=== PATIENT | female | born 1960 | race Caucasian/White ===

== ENCOUNTER 2019-06-10 10:31 | Outpatient (CLI) | payer OTHER ==
--- NOTE | 2019-06-10 12:15 | CT ---
CT ABDOMEN AND PELVIS WITH IV CONTRAST 06/10/2019 CLINICAL INFORMATION: Right-sided abdominal pain for 5 weeks. COMPARISON: 01/18/2016 Technique: Multiple contiguous axial CT images are obtained through the abdomen and pelvis with IV contrast. Cor onal reformatted images are provided. FINDINGS: Lower Chest: Minimal dependent atelectasis. Vessels: Minimal vascular calcifications in the abdominal aorta. The abdominal aorta is normal in jona iber without evidence of an aortic dissection. Abdomen: Portal vein:Patent Gallbladder: Within normal limits for CT imaging. Liver: within normal limits. Spleen: within normal limits. Pancreas: within normal limits. Adrenals: within normal limits. Kidneys: A subcentimeter too small to characterize hypodense lesion is again seen in the midportion l eft kidney. Kidneys otherwise have a normal CT appearance. Bowel: Small to moderate amount retained fecal material is seen throughout the colon. Loops of small bowel are normal in caliber. Appendix: Not definitely visualized, but there are no secondary signs to suggest appendicitis Peritoneum: No ascites or free air; no fluid collection. Mesentery and Retroperitoneum: No enlarged mesenteric or retroperitoneal lymph nodes. Abdominal Wall: within normal limits. Pelvis: Reproductive Organs: Evidence of hysterectomy. Pelvis within normal limits. Bladder: within normal limits. Bones: Postsurgical changes related to fusion of the L4-5 and L5-S1 levels are noted. Single screws a re seen in the anterior aspects of these vertebral bodies. No suspicious lytic or sclerotic osseous lesions are identified. No significant interval change compared to study in 2016. IMPRESSION: 1. No acute findings are seen in the abdomen or pelvis. 2. Constipation. 3. Hysterectomy.
== END 2019-06-10 10:32 | disposition home or self-care (01) ==
LOC: CT 10:31
PROVIDERS: ATTEND Family Medicine
DX: R10.9 Unspecified abdominal pain (principal); K59.00 Constipation, unspecified; Z90.710 Acquired absence of both cervix and uterus
CPT/HCPCS: 74177; 82565

== ENCOUNTER 2019-06-17 10:04 | Outpatient (CLI) | payer OTHER ==
--- NOTE | 2019-06-17 11:50 | RAD ---
2 VIEWS RIGHT HIP: Date: 06/17/2019 HISTORY: Right hip pain. FINDINGS: 2 views of the right hip show no evidence of acute fracture or dislocation. No degenerative changes a re seen. Hardware is seen in the lumbar spine. IMPRESSION: No evidence of acute osseous abnormality. POS: CET
== END 2019-06-17 10:05 | disposition home or self-care (01) ==
LOC: SCSRAD 10:04
PROVIDERS: ATTEND Family Medicine
DX: M16.11 Unilateral primary osteoarthritis, right hip (principal)

== ENCOUNTER 2020-10-07 14:57 | Outpatient (CLI) | payer OTHER | END 2020-10-07 14:58 | disposition home or self-care (01) | LOC: BICCT 14:57 | PROVIDERS: ATTEND Family Medicine | DX: H53.9 Unspecified visual disturbance (principal); M54.2 Cervicalgia; I67.82 Cerebral ischemia; M47.812 Spondylosis without myelopathy or radiculopathy, cervical region; G93.89 Other specified disorders of brain; V89.9XXA Person injured in unspecified vehicle accident, initial encounter; Z98.1 Arthrodesis status | CPT/HCPCS: 70450; 72040 ==

== ENCOUNTER 2020-10-16 14:13 | Outpatient (CLI) | payer OTHER ==
[2020-10-17 01:51] LABS: SARS-CoV-2 PCR by NAA Not Detected (NotDetected)
== END 2020-10-16 14:14 | disposition home or self-care (01) ==
LOC: LABBT 14:13
PROVIDERS: ATTEND Ophthalmology Retina Specialist
DX: Z01.812 Encounter for preprocedural laboratory examination (principal); H43.391 Other vitreous opacities, right eye; Z20.822 Contact with and (suspected) exposure to COVID-19
CPT/HCPCS: 87635; U0003; U0005

== ENCOUNTER 2020-10-20 06:13 | Day surgery (SDC) | payer OTHER ==
[2020-10-19 13:11] VITALS: BMI 22.1
[2020-10-20] MEDS ORDERED: PROPOFOL 20 ML ONE (06:32)
[2020-10-20] MEDS ORDERED: Midazolam HCl 2 mg/2 ml Vial ONE (06:32)
[2020-10-20] MEDS ORDERED: Fentanyl 100 MCG/2 ML VIAL ONE (06:32)
[2020-10-20] MEDS ORDERED: EPINEPHrine 0.3 MG in Ophthalmic Irrigation Solution 500 ML IRR SCH (06:45)
[2020-10-20] MEDS ORDERED: Cyclopentolate W/ Phenylephrin 40 DROP/2 ML BOT ONE (06:52)
[2020-10-20] MEDS ORDERED: Phenylephrine 2.5% Ophth Soln 5 ML BOT ONE (06:52)
[2020-10-20] MEDS ORDERED: Lidocaine 4% PF 5 ML AMP ONE (07:26)
[2020-10-20] MEDS ORDERED: Triamcinolone 40 MG/ML VIAL ONE (07:26)
[2020-10-20] MEDS ORDERED: CEFAZOLIN 1 GM VIAL ONE (07:26)
[2020-10-20] MEDS ORDERED: Lidocaine 1% PF 5 ML VIAL ONE (07:26)
[2020-10-20] MEDS ORDERED: Bupivacaine PF 0.75% SDV 10 ML ONE (07:26)
[2020-10-20] MEDS ORDERED: Maxitrol 0.1% Opth Oint 3.5 GM TUBE ONE (07:26)
== END 2020-10-20 08:45 | disposition home or self-care (01) ==
LOC: SDC 06:13
PROVIDERS: ATTEND Ophthalmology Retina Specialist
PROC: 08T43ZZ Resection of Right Vitreous, Percutaneous Approach (ICD-10-PCS; principal; 2020-10-20)
DX: H43.391 Other vitreous opacities, right eye (principal); Z79.899 Other long term (current) drug therapy; Z88.5 Allergy status to narcotic agent; Z88.8 Allergy status to other drugs, medicaments and biological substances
CPT/HCPCS: J0171; J0690; J2250; J2704; J3010; J3301; J3490

== ENCOUNTER 2021-02-20 11:33 | Emergency (ER) | payer OTHER ==
[2021-02-21 00:23] LABS: SARS-CoV-2 PCR by NAA Not Detected (NotDetected)
== END 2021-02-20 12:37 | disposition home or self-care (01) ==
LOC: ERS 11:33
DX: R09.81 Nasal congestion (principal); R05 Cough; R51.9 Headache, unspecified; Z20.822 Contact with and (suspected) exposure to COVID-19
CPT/HCPCS: 99283; U0003; U0005

== ENCOUNTER 2021-05-21 15:53 | Outpatient (CLI) | payer OTHER | END 2021-05-21 15:54 | disposition home or self-care (01) | LOC: RAD 15:53 | PROVIDERS: ATTEND Nurse Practitioner Family | DX: M46.1 Sacroiliitis, not elsewhere classified (principal); M47.818 Spondylosis without myelopathy or radiculopathy, sacral and sacrococcygeal region; Z98.890 Other specified postprocedural states | CPT/HCPCS: 72202 ==

== ENCOUNTER 2022-04-06 13:40 | Outpatient (CLI) | payer OTHER | END 2022-04-06 13:41 | disposition home or self-care (01) | LOC: SCSMRI 13:40 | PROVIDERS: ATTEND Orthopaedic Surgery | DX: M25.532 Pain in left wrist (principal); M65.4 Radial styloid tenosynovitis [de Quervain] ==

== ENCOUNTER 2022-04-19 19:39 | Emergency (ER) | payer OTHER ==
[2022-04-19] MEDS ORDERED: Lidocaine 1% MPF 2 ML VIAL ONE (20:10)
[2022-04-19] MEDS ORDERED: HYDROcodone/Acetaminophen 5/325 mg Tablet ONE (20:10)
[2022-04-19] MEDS ORDERED: Lorazepam 1 MG TAB ONE (21:06)
[2022-04-19] MEDS ORDERED: Lidocaine 1% PF 5 ML VIAL ONE (21:35)
[2022-04-19] MEDS ORDERED: Bacitracin 1 PK ONE (22:31)
== END 2022-04-19 22:47 | disposition home or self-care (01) ==
LOC: ERS 19:39
DX: S51.811A Laceration without foreign body of right forearm, initial encounter (principal); E03.9 Hypothyroidism, unspecified; Z79.899 Other long term (current) drug therapy; W26.8XXA Contact with other sharp object(s), not elsewhere classified, initial encounter
CPT/HCPCS: 12002

== ENCOUNTER 2022-05-12 07:32 | Outpatient (CLI) | payer OTHER ==
[2022-05-12 09:48] LABS: #Eosinphils 0.1 10x3/uL (0.0-0.5); #Monocytes 0.6 10x3/uL (0.0-1.1); #Neutrophils 2.6 10x3/uL (1.5-8.4); %Basophils 0.8 % (0.0-2.0); %Eosinophils 2.2 % (0.0-6.0); %Lymphocytes 35.5 % (18.0-47.0); %Neutrophils 50.3 % (40.0-75.0); Hemoglobin 13.9 g/dL (12.0-15.5); Mean Corpuscular Hemoglobin 31.3 pg (27.0-33.0); Mean Corpuscular Volume 92.1 fl (81.6-98.3); Mean Platelet Volume 11.4 fl (7.4-10.4); Platelet Count 236 10x3/uL (150-450); RBC Distribution Width 12.5 % (11.5-14.5); Red Blood Cell (RBC) Count 4.44 10x6/uL (3.90-5.03); White Blood Cell (WBC) Count 5.1 10x3/uL (3.5-10.5)
== END 2022-05-12 07:33 | disposition home or self-care (01) ==
LOC: LABBT 07:32
PROVIDERS: ATTEND Orthopaedic Surgery Hand Surgery
DX: Z01.818 Encounter for other preprocedural examination (principal); M65.4 Radial styloid tenosynovitis [de Quervain]; M67.432 Ganglion, left wrist
CPT/HCPCS: 85025; 93005; 93010

== ENCOUNTER 2022-05-16 11:17 | Day surgery (SDC) | payer OTHER ==
[2022-05-12 15:16] VITALS: BMI 22.6
[2022-05-16] MEDS ORDERED: fentaNYL PF 100 MCG/2 ML SYRINGE ONE (13:11)
[2022-05-16] MEDS ORDERED: Bacitracin Zinc Ointment 30 gm TUBE ONE (13:25)
[2022-05-16] MEDS ORDERED: Neomycin-Polymyxin 1 ML AMP ONE (13:25)
[2022-05-16] MEDS ORDERED: Bupivacaine PF 0.5% 30 ML VIAL ONE (13:25)
[2022-05-16] MEDS ORDERED: ePHEDrine 50 MG/ML VIAL ONE (13:59)
[2022-05-16] MEDS ORDERED: Ondansetron PF 4 MG/2 ML Vial ONE ×2 (13:59→17:38)
[2022-05-16] MEDS ORDERED: PROPOFOL 200 MG/20 ML VIAL ONE (13:59)
[2022-05-16] MEDS ORDERED: Dexamethasone 20 MG/5 ML VIAL ONE (13:59)
[2022-05-16] MEDS ORDERED: CEFAZOLIN 2 GM VIAL ONE (14:11)
[2022-05-16] MEDS ORDERED: Sodium Chloride 0.9% 100 ML ONE (14:11)
[2022-05-16] MEDS ORDERED: Betamet Acet/Betamet Na Ph 30 MG/5 ML VIAL ONE (14:52)
[2022-05-16] MEDS ORDERED: Ketorolac Tromethamine 30 MG/ML VIAL ONE (15:50)
[2022-05-16] MEDS ORDERED: diphenhydrAMINE 50 MG/ML VIAL ONE (16:06)
[2022-05-16] MEDS ORDERED: Ondansetron PF 4 MG/2 ML Vial IVP SCH (17:30)
[2022-05-16] MEDS ORDERED: hydrOXYzine 25 MG TAB PO SCH (17:30)
== END 2022-05-16 18:18 | disposition home or self-care (01) ==
LOC: SDC 11:17
PROVIDERS: ATTEND Orthopaedic Surgery Hand Surgery
PROC: 0LB60ZZ Excision of Left Lower Arm and Wrist Tendon, Open Approach (ICD-10-PCS; principal; 2022-05-16)
PROC: 01N60ZZ Release Radial Nerve, Open Approach (ICD-10-PCS; principal; 2022-05-16)
DX: M65.4 Radial styloid tenosynovitis [de Quervain] (principal); G56.32 Lesion of radial nerve, left upper limb; M67.432 Ganglion, left wrist; E03.9 Hypothyroidism, unspecified; Z79.890 Hormone replacement therapy; Z79.899 Other long term (current) drug therapy; Z88.5 Allergy status to narcotic agent; Z88.8 Allergy status to other drugs, medicaments and biological substances; Z98.1 Arthrodesis status
CPT/HCPCS: 88305; J0702; J1100; J1200; J1885; J2405; J2704; J3490; S0020